=== PATIENT | male | born 1985 | race Caucasian/White ===

== ENCOUNTER 2019-06-23 23:24 | Emergency (ER) | payer OTHER | END 2019-06-24 00:10 | disposition home or self-care (01) | LOC: ERS 23:24 | DX: S61.255A Open bite of left ring finger without damage to nail, initial encounter (principal); E03.9 Hypothyroidism, unspecified; F17.220 Nicotine dependence, chewing tobacco, uncomplicated; W55.01XA Bitten by cat, initial encounter | CPT/HCPCS: 99283 ==

== ENCOUNTER 2020-11-14 09:23 | Outpatient (CLI) | payer BC | END 2020-11-14 09:24 | disposition home or self-care (01) | LOC: ULT 09:23 | PROVIDERS: ATTEND Nurse Practitioner Family | DX: K80.50 Calculus of bile duct without cholangitis or cholecystitis without obstruction (principal); K82.8 Other specified diseases of gallbladder | CPT/HCPCS: 93975 ==